=== PATIENT | male | born 1950 | race Caucasian/White ===

== ENCOUNTER → 2017-01-20 | Outpatient (CLI) | payer MEDICARE ==
[~2017-01-20] MED LIST: SILV-4 TOP
--- NOTE | 2017-01-20 13:35 | RADONC ---
RADIATION ONCOLOGY CONSULTATION NOTE: DATE: 01/20/2017 CHART NUMBER: [id number]. DIAGNOSIS: Hepatocellular carcinoma. STAGE: IV. ECOG PERFORMANCE STATUS: 1. CONSULTATION NOTE: Mr. Eason is a very pleasant, 66-year-old white male with the diagnosis of metastatic hepatocellular carcinoma who is presenting to us today for consideration of palliative radiation therapy to a large left medial clavicle metastasis. HISTORY OF PRESENT ILLNESS: The patient was in his usual state of health and had been followed for a history of hepatitis C and cirrhosis. In December of 2015, he was found to have a 1.3 cm liver lesion. An MRI was done and showed multifocal liver lesions. The patient was treated with Y-90 in [place] in 04/05/2016. He did well until approximately 4 months or so ago when he began having increased pain over his left clavicle of what he thought was originally a small bump. This area continued to increase in size and the pain has progressed. On 01/03/2017, the patient underwent a biopsy of his expansile left medial clavicular mass and pathology revealed metastatic hepatocellular carcinoma. A bone scan was done on 11/12/2016 that showed increased activity in that bone. I do not have a copy of the actual scan to review. An MRI of the abdomen was done on 11/30/2016 and showed hepatic cirrhosis. There is also a component of metastatic disease present. PAST MEDICAL HISTORY: The patient's past medical history is positive for hepatitis and cirrhosis. He also has history of arthritis. ALLERGIES: The patient has NO KNOWN DRUG ALLERGIES. SOCIAL HISTORY: The patient has smoked cigarettes for years. He was a heavy drinker but quit 2 years ago. FAMILY HISTORY: The patient's family history is negative for hepatocellular carcinoma or other malignancies. REVIEW OF SYSTEMS: The patient's review of systems is positive for pain over his left clavicle. He also has weight loss and anorexia. His review of systems is otherwise noncontributory. Denies nausea, vomiting, fevers, chills, night sweats, diplopia, headaches, anxiety or depression, anorexia, weight loss, visual disturbances, chest pain, urinary or bowel difficulties, bone pain, or neurological problems. PHYSICAL EXAMINATION: The patient is a cachectic, white male in no acute distress. HEENT: Exam is normocephalic, atraumatic. Extraocular movements are intact. There is no palpable cervical, supraclavicular, infraclavicular or axillary lymphadenopathy present. That being said, there is a large clavicular mass in the left neck, which is fixed. His lungs are clear to auscultation and percussion. His heart has regular rate and rhythm. His abdomen is benign with no as splenomegaly, masses or tenderness. Skeletal examination reveals no tenderness to pressure, percussion of the bony skeleton. Extremities reveal no clubbing, cyanosis or edema. Neurologic exam is grossly intact. ASSESSMENT: Mr. Eason clearly is a candidate for palliative radiation therapy and I so informed him. I have discussed with the patient the potential benefits as well as possible acute and chronic sequelae of external beam radiation therapy. We discussed logistics of treatment planning, simulation subsequent fractionated daily radiation treatments. I have scheduled the patient for the next available simulation slot and radiation treatments will begin subsequently. The patient is scheduled to see the medical oncologist, Dr. Manzano tomorrow to discuss systemic options. In addition, I have ordered a new PET CT scan for initial staging of his hepatocellular carcinoma. In addition, I am ordering an MRI of the brain to rule out brain metastasis. We are attempting to obtain CD copies of his diagnostic studies. Thank you for referring this very pleasant patient to us. If I can be of any further assistance or provide you with any information, please free to contact me anytime. As always, warm regards. cc: MD Norma Vigil MD Rahul Seth, DO Catherine Williams, MD
--- NOTE | 2017-01-27 14:35 | RADONC ---
RADIATION ONCOLOGY SIMULATION NOTE DATE: 01/27/2017 CHART NUMBER: [id number] Mr. Eason was taken to the CT scan for CT simulation of his neck/clavicle field. CT was accomplished without difficulty or discomfort. Radiation treatment planning is underway and radiation treatments will begin subsequently. An immobilization device was created without difficulty or discomfort. It will be used throughout the course of treatment. I was physically present throughout the course of CT simulation.
--- NOTE | 2017-02-22 08:35 | RADONC ---
RADIATION ONCOLOGY PROGRESS NOTE: DATE: 02/21/2017 CHART NUMBER: [id number]. PROGRESS NOTE: Jenaro is presently at a dose of 2000 cGy to his left clavicle and is tolerating treatments quite well at this point with no significant difficulties related to his radiation therapy. He continues to have pain in that bone area. REVIEW OF SYSTEMS: The patient's review of systems is positive for pain in his clavicle but is otherwise noncontributory. Denies nausea, vomiting, fevers, chills, night sweats, diplopia, headaches, anxiety or depression, anorexia, weight loss, visual disturbances, chest pain, urinary or bowel difficulties, bone pain, or neurological problems. PHYSICAL EXAMINATION: The patient's skin is in good condition with no evidence of moist or dry desquamation. The mass itself is now approximately 6.2 cm. It appears to have shrank somewhat. The remainder of his physical exam remains unchanged. Mr. Eason is tolerating treatments quite well and radiation will continue as scheduled.
== END ==
LOC: M ONCR 09:27
PROVIDERS: ATTEND Radiology Radiation Oncology
DX: C22.0 Liver cell carcinoma (principal); C79.51 Secondary malignant neoplasm of bone; Z86.19 Personal history of other infectious and parasitic diseases; K74.60 Unspecified cirrhosis of liver; M19.90 Unspecified osteoarthritis, unspecified site; F17.200 Nicotine dependence, unspecified, uncomplicated

== ENCOUNTER → 2017-01-26 | Outpatient (CLI) | payer MEDICARE ==
--- NOTE | 2017-01-27 13:38 | REP ---
PET/CT: HISTORY: Initial staging liver cancer. COMPARISONS: Comparison MRI abdomen, November 30, 2016 from [facility]. Comparison radionuclide bone scan, November 12, 2016 from [facility]. The patient is status post biopsy of an expansile left medial clavicle bone lesion on January 03, 2017. Pathology showed metastatic hepatocellular carcinoma. TECHNIQUE: 54 minutes following the intravenous injection of a 10.8 mCi dose of F-18 FDG, three-dimensional PET scintigraphy is acquired from the skull base to the proximal thighs. Triplanar noncontrast CT scanning is acquired through the same anatomic range for attenuation correction, and image registration with scan parameters optimized to minimize radiation exposure to the patient. PET scintigraphy and CT datasets were fused and displayed on a workstation with multiplanar and projection display capability. PET/CT FINDINGS: There is fairly low-level hypermetabolic uptake in the known malignant expansile mass in the medial head of the clavicle on the left. Maximum standard uptake value is 3.7 in this lesion. There is also a more hypermetabolic focus in the right parotid gland with maximum standard uptake value within this focus of 15. This may be a primary parotid neoplasm or an intraparotid lymph node lesion. Ultrasound-guided biopsy of this lesion should be considered. No abnormal hypermetabolic uptake is seen within the liver in this patient with known hepatocellular carcinoma. Opaque gallstones are seen. There is some volume loss in the right hepatic lobe overall consistent with cirrhosis. No other abnormal hypermetabolic uptake is seen within the abdomen or pelvis. IMPRESSION: Low-level hypermetabolic uptake is seen in the known metastasis in the medial head of the left clavicle. There is a more avid hypermetabolic feilciano focus in the right parotid gland which may be a second primary or a feliciano lesion. No other abnormal hypermetabolic uptake is seen. Signed by Dung Almaguer MD 01/27/2017 05:15 P
== END ==
LOC: M PLARAD 13:18
PROVIDERS: ATTEND Radiology Radiation Oncology
DX: C22.9 Malignant neoplasm of liver, not specified as primary or secondary (principal); C79.51 Secondary malignant neoplasm of bone
CPT/HCPCS: 78815; A9552

== ENCOUNTER 2017-01-27 10:30 | Outpatient (RCR) | payer MEDICARE ==
--- NOTE | 2017-02-15 10:45 | RADONC ---
RADIATION ONCOLOGY PROGRESS NOTE DATE: 02/14/2017 CHART NUMBER: [id number] Mr. Eason is presently at a dose of 750 cGy to his left clavicle and is tolerating treatments quite well at this point with no complaints related to his radiation therapy. He is having no bone or chest wall pain. The patient's review of systems is noncontributory. He denies nausea, vomiting, fevers, chills, night sweats, diplopia, headaches, anxiety or depression, anorexia, weight loss, visual disturbances, chest pain, urinary or bowel difficulties, bone pain, or neurological problems. PHYSICAL EXAMINATION: The patient's skin is in good condition with no evidence of radiation change present. There is no moist or dry desquamation. The tumor measures roughly 6.5 cm in widest dimension today. The remainder of his physical exam remains unchanged. Mr. Eason is tolerating treatments quite well, and radiation will continue as scheduled.
== END 2017-02-21 ==
LOC: M ONCR 10:30
PROVIDERS: ATTEND Radiology Radiation Oncology
DX: C79.51 Secondary malignant neoplasm of bone (principal); C22.8 Malignant neoplasm of liver, primary, unspecified as to type

== ENCOUNTER → 2017-01-27 | Outpatient (CLI) | payer MEDICARE | LOC: M RAD 13:54 | PROVIDERS: ATTEND Radiology Radiation Oncology | DX: C22.9 Malignant neoplasm of liver, not specified as primary or secondary (principal) ==

== ENCOUNTER 2017-02-22 11:28 | Outpatient (RCR) | payer MEDICARE ==
--- NOTE | 2017-03-01 07:43 | RADONC ---
RADIATION ONCOLOGY PROGRESS NOTE DATE: 02/28/2017 CHART NUMBER: [id number] Mr. Eason is presently at a dose of 3250 cGy to his left clavicle and is tolerating treatments quite well at this point with no complaints related to his radiation therapy. He is having no increase in pain or discomfort in the treated area. REVIEW OF SYSTEMS: The patient's review of systems is noncontributory. He denies nausea, vomiting, fevers, chills, night sweats, diplopia, headaches, anxiety or depression, anorexia, weight loss, visual disturbances, chest pain, urinary or bowel difficulties, bone pain or neurological problems. PHYSICAL EXAMINATION: The patient's neck mass is unchanged in size. His skin is in good condition with no evidence of moist or dry desquamation. The remainder of his physical exam remains unchanged. Mr. Eason is tolerating treatments quite well and radiation will continue as scheduled. He will soon be beginning his systemic therapy.
--- NOTE | 2017-03-04 09:03 | RADONC ---
RADIATION ONCOLOGY TREATMENT SUMMARY: DATE: 03/04/2016 CHART NUMBER: [id number]. DIAGNOSIS: Hepatocellular carcinoma. STAGE: IV. ECOG PERFORMANCE STATUS: 1. TREATMENT SUMMARY: Mr. Eason is a very pleasant, 66-year-old white male with the diagnosis of metastatic hepatocellular carcinoma who presented to us for consideration of palliative radiation therapy to a large left medial clavicular metastasis. We treated the patient to his left clavicle and soft tissue mass for a dose of 4000 cGy delivered in 16 fractions of 250 cGy each over 22 elapsed days, from 02/09/2017 through 03/03/2017. The patient's mass was treated on the linear accelerator utilizing a 6MV photon beam via 3D conformal technique with a wedge there. 1 cm of tissue equivalent bolus was placed over the field. Mr. Eason tolerated his treatments quite well and was able to complete therapy without difficulty or interruption. I have scheduled the patient to see me again in 1 month for further followup. He will also continue to be followed by his other physicians as well. cc: MD Norma Vigil MD Rahul Seth, DO Catherine Williams, MD
[2017-03-17] MEDS ORDERED: SILV-4 TOP (11:01)
== END 2017-03-24 ==
LOC: M ONCR 11:28
PROVIDERS: ATTEND Radiology Radiation Oncology
DX: C79.51 Secondary malignant neoplasm of bone (principal); C22.8 Malignant neoplasm of liver, primary, unspecified as to type

== ENCOUNTER → 2017-02-24 | Outpatient (REF) | payer MEDICARE ==
[2017-02-24 13:44] LABS: INR 1.17
== END ==
LOC: M LAB REF 13:00
PROVIDERS: ATTEND Internal Medicine Medical Oncology
DX: C22.0 Liver cell carcinoma (principal)

== ENCOUNTER → 2017-03-03 | Outpatient (CLI) | payer MEDICARE ==
--- NOTE | 2017-03-03 18:01 | REP ---
PAROTID ULTRASOUND: Real-time sonographic evaluation of the right parotid gland is performed. Recent PET CT 01/26/2017 showed hypermetabolic uptake in the right parotid gland. There is an oval hypoechoic nodule in the right parotid which measures 2.1 x 1.0 x 1.1 cm. Internal blood flow is seen with duplex Doppler evaluation. This may represent an enlarged lymph node. There is a small benign appearing lymph node nearby measuring 8 x 3 mm. The left parotid gland is unremarkable. IMPRESSION: Dominant hypoechoic nodule in the right parotid gland at the site of hypermetabolic uptake on recent PET scan. This solid nodule could represent an enlarged lymph node or other parotid solid nodule. Signed by Brody Olvera MD 03/04/2017 05:04 P
== END ==
LOC: M RAD 14:04
PROVIDERS: ATTEND Internal Medicine Medical Oncology
DX: C22.0 Liver cell carcinoma (principal); R22.1 Localized swelling, mass and lump, neck

== ENCOUNTER → 2017-03-10 | Outpatient (CLI) | payer MEDICARE ==
[~2017-03-10] MED LIST changes: +LIDOCAINE 1% MDV 20ML VIAL As Ordered ONE
--- NOTE | 2017-03-10 16:09 | REP ---
RIGHT PAROTID FINE NEEDLE ASPIRATION WITH ULTRASOUND GUIDANCE: The procedure was performed by SEAN Whitmore under the direct supervision of Dr. Olvera. The procedure along with its risks, benefits, and complications were discussed with the patient prior to the procedure. Informed consent was obtained both verbally and written. The patient was identified in the ultrasound suite and placed in a supine position. Ultrasound imaging was used to assess the target location. This area was marked, prepped and draped in the usual sterile fashion. A procedural "time-out" was performed to ensure that the correct patient, site, and procedure were being performed. Local infiltrative anesthesia was achieved with 1% Xylocaine. Six passes were made into the mass with 25-gauge needles. The samples were split into Cytolyt and RPMI. These were sent to the lab for further evaluation. Results pending. The patient tolerated the procedure well and was discharged home. Reviewed by SEAN Maddox 03/10/2017 04:15 PEdited and Signed by Brody Olvera MD 03/10/2017 04:58 P
== END ==
LOC: M RADPRO 08:18
PROVIDERS: ATTEND Internal Medicine Medical Oncology
DX: D11.0 Benign neoplasm of parotid gland (principal); R22.0 Localized swelling, mass and lump, head; Z87.891 Personal history of nicotine dependence; C22.0 Liver cell carcinoma; C79.51 Secondary malignant neoplasm of bone; Z86.19 Personal history of other infectious and parasitic diseases; K74.60 Unspecified cirrhosis of liver

== ENCOUNTER → 2017-04-06 | Outpatient (CLI) | payer MEDICARE ==
[~2017-04-06] MED LIST changes: -LIDOCAINE 1% MDV 20ML VIAL As Ordered ONE
--- NOTE | 2017-04-07 08:26 | RADONC ---
RADIATION ONCOLOGY FOLLOWUP NOTE DATE: 04/06/2017 CHART NUMBER: [id number]. DIAGNOSIS: Hepatocellular carcinoma. STAGE: IV. ECOG PERFORMANCE STATUS: 1. FOLLOWUP NOTE Mr. Eason is a very pleasant, 66-year-old white male with the diagnosis of metastatic appendicitis carcinoma who is presenting to us today for routine followup visit 1 month post completion of palliative radiation therapy to his left clavicle and soft tissue for a large mass. The patient presents today reporting that he is doing generally well. He continues to have some left arm pain. The mass in his left clavicle remains unchanged. The patient does not think it has gotten any smaller. REVIEW OF SYSTEMS: The patient's review of systems is positive for left arm pain but is otherwise noncontributory. Denies nausea, vomiting, fevers, chills, night sweats, diplopia, headaches, anxiety or depression, anorexia, weight loss, visual disturbances, chest pain, urinary or bowel difficulties, bone pain, or neurological problems. PHYSICAL EXAMINATION: The patient is a chronically ill-appearing, cachectic white male in no acute distress. HEENT exam is normocephalic, atraumatic. Extraocular movements are intact. There is no palpable cervical, supraclavicular, infraclavicular lymphadenopathy present. There is a large mass, which now measured approximately 6.2 cm over his left clavicle. The skin does not appear to be involved. The skin over the radiated area has returned to normal with no evidence of moist or dry desquamation. There is some residual tanning present. His lungs are clear to auscultation and percussion. ASSESSMENT: The patient is clinically stable at this point. I have scheduled him to see me again in 3 months. He will continue to be followed and managed closely by his medical oncologist, Dr. Reeves. cc: MD Guillaume Paul MD [place], MD Rahul Seth, DO Catherine Williams, MD
== END ==
LOC: M ONCR 14:20
PROVIDERS: ATTEND Radiology Radiation Oncology
DX: C22.8 Malignant neoplasm of liver, primary, unspecified as to type (principal); C79.51 Secondary malignant neoplasm of bone